=== PATIENT | male | born 1950 | race Caucasian/White ===

== ENCOUNTER 2020-01-30 00:02 | Emergency (ER) | payer OTHER, SELFPAY ==
[2020-01-30 00:14] VITALS: BP 172/87; PULSE 104; RESP 18; TEMP 37; O2SAT 98; BMI 36.9
--- NOTE | 2020-01-30 00:38 | XRR_ITS ---
PROCEDURE INFORMATION: Exam: XR Abdomen, 1 View Exam date and time: 01/30/2020 1:12 AM Age: 69 years old Clinical indication: Constipation; Additional info: Abd pain, constipation TECHNIQUE: Imaging protocol: XR of the abdomen. Views: Frontal supine view of the abdomen. 1 View. COMPARISON: CR XR KUB [id number] 2015-05-14 02:50 FINDINGS: Gastrointestinal tract: Normal. No bowel dilation. Bones/joints: Moderate bilateral hip degenerative joint disease. XR/XR KUB portable [id number] IMPRESSION: No acute abnormality.
--- NOTE | 2020-01-30 00:40 | W.ED.MALEGU ---
HPI - Male Genitourinary General: Chief complaint: Urogenital-Male Stated complaint: Abdominal pain/hemorroid Time Seen by Provider: 01/30/20 00:23 History of Present Illness: HPI Narrative: Patient's have had a couple hard bowel movements now he has a hemorrhoid that flared up and then also has problems urinating and not able to urinate very much at all for her today MD Complaint: dysuria Onset (ago): hour(s) Duration: constant Severity: moderate Relieving factors: urination Exacerbating factors: none Associated symptoms: Reports other (Constipation); Deny nausea or vomiting Review of Systems Const: Denies: fever, chills or body aches Eyes: Denies: change in vision or blurry vision ENMT: Denies: throat pain or nasal congestion Card: Denies: chest pain or shortness of breath on exertion Resp: Denies: shortness of breath, productive cough or non-productive cough GI: Reports: constipation, painful bowel movements (Hemorrhoid) and other; Denies: abdominal pain, nausea or vomiting : Denies: difficulty urinating Musc: Denies: extremity pain Skin/Breast: Denies: rash Neuro: Denies: headache Psych: Denies: anxiety or depression Maxwell/Lymph: Denies: easy bruising PFSH ED PFSH: Social History Smoking and tobacco status: never smoked Physical Exam Const: COMMON NORMALS: no apparent distress, average body habitus and oriented x3 HENMT: COMMON NORMALS: normocephalic HEAD & SCALP: normal to inspection and normocephalic FACE & SINUS: normal facial exam Eye: COMMON NORMALS: conjunctivae normal GENERAL EYE: normal appearance of both eyes CONJUNCTIVA: Yes conjunctivae normal Neck/C-Spine: COMMON NORMALS: no JVD Chest: COMMONS NORMALS: inspection of chest normal Resp: COMMON NORMALS: normal respiratory effort and clear to auscultation bilaterally AUSCULTATION: clear to auscultation bilaterally Cardio: COMMON NORMALS: no JVD, regular rate and regular rhythm RATE: regular rate RHYTHM: regular rhythm GI: COMMON NORMALS: non-tender AUSCULTATION: Yes hypoactive bowel sounds PALPATION: Yes firm PERCUSSION: dullness to percussion RECTAL EXAM: No heme negative stool, Yes prostate abnormal enlarged and other (Firm), Yes heme positive stool, Yes hemorrhoids and Yes prolapse : COMMON NORMALS: Yes no CVA tenderness BLADDER/KIDNEY EXAM: Yes no CVA tenderness Back/Pelvis: COMMON NORMALS: no CVA tenderness Extremity: COMMON NORMALS: normal to inspection and full ROM Neuro: COMMON NORMALS: oriented x3 Course Vital Signs: Vital signs: Vital Signs Temperature 98.6 F 01/30/20 00:14 Pulse Rate 104 H 01/30/20 00:14 Respiratory Rate 18 01/30/20 00:14 Blood Pressure 172/87 01/30/20 00:14 Pulse Oximetry 98 01/30/20 00:14 MDM - Male MDM Narrative: Medical decision making narrative: Patient had good relief with Yun catheter had 1200 cc urine out. Discharge Plan Discharge Patient Disposition: Home, Self-Care Clinical Impression: Acute hemorrhoid, Acute urinary retention Constipation Qualifiers: Constipation type: unspecified constipation type Qualified Code(s): K59.00 - Constipation, unspecified Benign prostatic hyperplasia Qualifiers: Lower urinary tract symptom presence: symptoms present Lower urinary tract symptom detail: urinary retention Qualified Code(s): N40.1 - Benign prostatic hyperplasia with lower urinary tract symptoms Condition: Stable Prescriptions: New terazosin 5 mg capsule 10 mg PO DAILY Qty: 14 RF: 0 Referrals: Maria Eugenia Rosas FNP [Family Provider] - Emile Chamberlain DO [Primary Care Provider] - Discharge Diet: Advance as tolerated and As Directed Discharge Activity: Resume usual activity Patient Instructions: Hemorrhoids, Constipation (ED), Benign Prostatic Hypertrophy (ED), Yun Catheter Placement and Care (ED) Activity Restrictions/Additional Instructions: Follow-up with medical provider as directed. Take medications as prescribed. Return to the ER or your medical provider if condition worsens. Please read and understand discharge instructions. If any questions ask please. Follow-up with your primary care and see about get appointment Dr. Rosa for Friday or Friday. Increase fiber in the diet increase water in your diet need to use laxative and stool softener. Need to use soapsuds enema. Coding Level of Care Code ED Assistant Professor Sculpture for Em Fwd Exam Comprehensive
[2020-01-30] MEDS: terazosin 5 mg Capsule 10 MG PO (01:55)
[2020-01-30 02:00] VITALS: BP 201/102; PULSE 98; RESP 18; O2SAT 93
[2020-01-30 02:22] LABS: Bacteria Urine TRACE; Bilirubin Urine Neg (NEGATIVE); Blood Urine 2+ (Negative); Glucose Urine UA Norm (Normal); Ketones Urine Negative (Negative); Leukocyte Esterase Urine Negative (Negative); Nitrate Urine Negative (Negative); Protein Urine Neg (Negative); RBC Urine 25-40 /hpf (0-2); Sperm Urine 2+; Squamous Epithelial Cell Urine 0-4 (0-5); Urine Appearance Clear (CLEAR); Urine Color Yellow (Yellow); Urobilinogen Urine Norm (Negative); pH Urine 5 (5-7)
[2020-01-30 02:23] LABS: Add Urine Culture? Yes
[2020-01-30 02:48] VITALS: BP 120/53; PULSE 96; RESP 18; O2SAT 98
== END 2020-01-30 02:49 | disposition home or self-care (01) ==
PROVIDERS: Emergency Provider Nurse Practitioner Family; Family Provider Nurse Practitioner; PCP Family Medicine
DX: N40.1 Benign prostatic hyperplasia with lower urinary tract symptoms (principal); R33.8 Other retention of urine; K64.8 Other hemorrhoids; K59.00 Constipation, unspecified
CPT/HCPCS: 12345; 51702; 74018; 81001; 87086; 99283

== ENCOUNTER → 2020-04-24 08:18 | Outpatient (BNVA) | payer OTHER, SELFPAY | PROVIDERS: Family Provider Nurse Practitioner; PCP Family Medicine; Referring Provider Nurse Practitioner; Visit Provider Urology | DX: N40.1 Benign prostatic hyperplasia with lower urinary tract symptoms (principal); R33.9 Retention of urine, unspecified | CPT/HCPCS: 81001 ==

== ENCOUNTER 2021-11-16 07:50 | Outpatient (CLI) | payer OTHER, SELFPAY ==
[2021-11-16 08:10] VITALS: BMI 36.0
--- NOTE | 2021-11-16 08:13 | ECG_ITS ---
[facility] Test Date: 2021-11-16 Pat Name: Fabrice Hood Department: Room: Gender: Male Radiology Transporter: Maria M Coffey : 1950 Requested By: Edgar Perez Order Number: [id number] Walter MD: AFRICA UMAÑA Interpretive Statements NAME OF STUDY: LEXISCAN SESTAMIBI STRESS TEST INDICATION: Chest Pain, NOTE: Please note that this is the electrocardiogram portion of the Lexiscan/Sestamibi stress test. The perfusion scan will be documented separately. DATA: Baseline heart rate was 70 beats per minute. Baseline blood pressure was 144/72 millimeters of mercury. Target heart rate was 144. Maximum heart rate achieved was 92. which was 62 % of the predicted target heart rate. Maximum blood pressure was 162/72 millimeters of mercury. The reason for ending the test was completion of the protocol. The patient did not experience any symptoms. ELECTROCARDIOGRAM: BASELINE: Sinus rhythm. Normal axis. Otherwise, no ST-T changes suggestive of ischemia noted. No arrhythmia noted. EXERCISE: After Lexiscan injection, no ST-T changes suggestive of ischemic noted. No arrhythmia noted. CONCLUSION: Please note due to baseline abnormality of the EKG specificity and sensitivity of the EKG portion of LexiScan MIBI stress test will be low 1. EKG not suggestive of ischemia 2. Lexiscan injection unremarkable. 3. Perfusion scan will be documented separately. Electronically Signed On 11-20-2021 22:02:03 CRADLE PLACER by AFRICA UMAÑA [id number]
--- NOTE | 2021-11-16 08:14 | NMCV_ITS ---
NM juice perf SPECT r/s* [id number] Fabrice Hood Age: 71 Gender: M : 1950 Exam Date: 11/16/2021 08:14 Ordering Phys: Edgar Perez M.D ([email or web address]) Technologist: ELIANE Herndon Exam Location: [facility] Indications: CHEST PAIN STRESS TEST Please see separate stress test report in [facility] for full findings IMAGE PROTOCOL Rest/Stress 1 Lexiscan Day Radiopharmaceutical Dose (mCi) Administration Site Administered by Rest: Tc-99m 10.9 IV ELIANE Hansen Sestamibi Stress:Tc-99m 32.6 IV ELIANE Hansen Sestamibi Rest: 16-Nov-2021 60 Discovery 630 Stress: 16-Nov-2021 30 Discovery 630 0.4mg Lexiscan. Images obtained in supine and prone position. SPECT RESULTS Technical Quality: Excellent Raw Data Analysis: Normal Image Corrections: No attenuation or motion correction applied Summed Stress Score: 4 Summed Rest Score: 4 Summed Difference Score: 3 PERFUSION FINDINGS Medium-sized area fixed perfusion defect noted in basal to mid inferior and inferior lateral wall suggestive of old myocardial infarction versus scarring. FUNCTIONAL RESULTS (calculated via Gated SPECT) Stress Image LV EF (%): 79 Stress EDV (mL):102 TID: 1.02 Stress ESV (mL):21 Rest Image LV EF (%): 79 FUNCTIONAL FINDINGS: There is normal left ventricular systolic function. IMPRESSIONS Medium-sized area of old myocardial infarction versus scarring due to fixed perfusion defect noted in basal to mid inferior and for lateral wall however in the absence of wall motion abnormality could be an artifact. There is no ischemia noted. EKG segment will be documented separately. Charo Cano MD (Electronically Signed) Final Date: 16 November 2021 18:38 S
[2021-11-16 09:58] VITALS: BP 126/59; PULSE 83
[2021-11-16] MEDS: regadenoson 0.4 Mg/5 ml Syringe IVP (10:00)
== END 2021-11-16 07:51 | disposition home or self-care (01) ==
LOC: RAD 07:52 → CDL 08:02
PROVIDERS: PCP Family Medicine; Visit Provider Internal Medicine
DX: R07.9 Chest pain, unspecified (principal); R06.02 Shortness of breath
CPT/HCPCS: 78452; 93017; A9500; J2785

== ENCOUNTER 2021-12-31 15:27 | Outpatient (CLI) | payer OTHER, MEDICARE, SELFPAY ==
--- NOTE | 2021-12-31 15:45 | USCV_ITS ---
Fabrice Hood Age: 71 Gender: M : 1950 Exam Date: 12/31/2021 15:43 Ordering Phys: Edgar Perez M.D ([email or web address]) Technologist: DAMARI Exam Location: [facility] [place] Indication: Shortness of breath BP: 132 / 58 HR: 59 Rhythm: Sinus Technical Quality: Adequate MEASUREMENTS (Male / Female) Normal Values 2D ECHO LV Diastolic Diameter PLAX 4.9 cm 4.2 - 5.9 / 3.9 - 5.3 cm LV Systolic Diameter PLAX 3.1 cm IVS Diastolic Thickness 1.5 cm 0.6 - 1.0 / 0.6 - 0.9 cm IVS Systolic Thickness 1.6 cm LVPW Diastolic Thickness 1.1 cm 0.6 - 1.0 / 0.6 - 0.9 cm LVPW Systolic Thickness 1.7 cm RV Chamber Size 3.2 cm LVOT Diameter 2.0 cm LV Ejection Fraction 2D Teich 66.9 % LV Ejection Fraction MOD 2C 62.6 % LV Ejection Fraction 2C AL 63.0 % LA Diameter 3.8 cm LA Width 3.3 cm LA Height 5.1 cm RA Width 3.8 cm RA Height 4.7 cm Aorta at Sinotubular Diameter 2.1 cm M-MODE Aortic Annulus Diameter 2.8 cm LA Ao Ratio MM 1.4 MV E Point Septal Separation 0.4 cm DOPPLER AV Peak Velocity 146.0 cm/s LVOT Peak Velocity 75.0 cm/s AV Area Cont Eq vti 2.2 cm squared AV Area Cont Eq pk 1.6 cm squared MV Area PHT 2.7 cm squared Mitral E to A Ratio 0.8 MV E' Velocity 36.5 cm/s Mitral E to MV E' Ratio 7.6 Mitral E to LV E' Lateral Ratio 7.8 Mitral E to LV E' Septal Ratio 7.5 TR Peak Velocity 360.7 cm/s TR Peak Gradient 52.0 mmHg TV Peak E Velocity 50.0 cm/s PV Peak Velocity 161.0 cm/s RV Acceleration Time 0.1 s RV Ejection Time 0.3 s RV AcT/ET 0.2 FINDINGS Left Ventricle Normal left ventricular size. LV systolic function is normal with EF of 55-60%. No regional wall motion abnormalities. Grade 1 diastolic dysfunction Right Ventricle The right ventricle is normal in size and function. Right Atrium The right atrium is normal in size. Left Atrium The left atrium is normal in size. Mitral Valve Structurally normal mitral valve without significant stenosis or prolapse. There is trace mitral regurgitation. Aortic Valve Structurally normal aortic valve without significant sclerosis or stenosis. There is no aortic regurgitation. Tricuspid Valve Structurally normal tricuspid valve without significant stenosis. Mild tricuspid regurgitation. Insufficient TR jet to calculate RVSP Pulmonic Valve Structurally normal pulmonic valve without significant stenosis. There is no pulmonic regurgitation. Pericardium Normal pericardium without effusion. Aorta Normal ascending aorta dimension. CONCLUSIONS LV systolic function is normal with EF of 55-60% Grade 1 diastolic dysfunction Trace mitral regurgitation Mild tricuspid regurgitation No comparison studies are available Edgar Perez MD (Electronically Signed) Final Date: 05 January 2022 17:29 S
== END 2021-12-31 15:28 | disposition home or self-care (01) ==
LOC: RAD 15:28
PROVIDERS: PCP Family Medicine; Visit Provider Internal Medicine
DX: R06.02 Shortness of breath (principal); R07.9 Chest pain, unspecified; I08.1 Rheumatic disorders of both mitral and tricuspid valves
CPT/HCPCS: 93306

== ENCOUNTER 2022-09-02 13:32 | Emergency (ER) | payer OTHER, SELFPAY ==
[2022-09-02 14:09] VITALS: BP 175/73; PULSE 99; RESP 14; TEMP 36.8; O2SAT 96; BMI 36.4
--- NOTE | 2022-09-02 14:47 | W.ED.ABDPA2 ---
HPI - Abdominal Pain General: Chief Complaint: Abdominal Pain Stated Complaint: cant use bathroom Time Seen by Provider: 09/02/22 14:18 Source: patient Mode of arrival: ambulatory Limitations: no limitations History of Present Illness: This patient presents to the emergency department because of abdominal pressure and discomfort and inability to pass urine. He states that he has had increasing lower abdominal pressure with inability to pass much in the way of urine today. He states when he got up today he had the urge to have a bowel movement but he states he only had a very small bowel movement and then he passed a small amount of urine and since then he is has only been able to pass a small amount of urine. He states he is feels increasingly distended and uncomfortable. He denies any fevers or chills. He has had 1 similar occurrence many years ago but did not require any additional urologic evaluation or work-up. He does take Flomax. He states that he drank usual amount of water last night and this morning. He has had no obvious blood in his urine, fevers, chills, upper abdominal pain etc. He has had no abdominal surgeries. No history of cardiovascular disease. Non-smoker. MD elicited complaint: abdominal pain Associated Symptoms: Denies chills, diarrhea, fever(s), nausea and vomiting Review of Systems Const: Denies: fever(s) or chills Eyes: Denies: change in vision ENMT: Denies: throat pain, odynophagia, nasal discharge or nasal congestion Card: Denies: chest pain, palpitations or irregular heart rhythm Resp: Denies: dyspnea, productive cough or non-productive cough GI: Denies: nausea, vomiting or diarrhea : Reports: difficulty urinating, difficulty starting urination and oliguria Musc: Denies: neck pain, back pain, extremity pain or extremity swelling Skin/Breast: Denies: rash Neuro: Denies: headache(s), numbness in extremities or weakness in extremities Endo: Denies: polyuria or polydipsia PFS ED PFSH: Medical History (Updated 09/02/22 @ 16:30 by Teo Lambert DO) BPH NOS w ur obs/LUTS Hemorrhoid Hx of agent [place] exposure Urinary retention Family History Grandmother Diabetes Other CAD (coronary artery disease) Social History Smoking and tobacco status: former smoker Quit status (tobacco): has quit using tobacco Year quit tobacco: 1977 Alcohol intake: never Adopted: No Caregiver/support person: No Lives independently: No Household members: spouse Marital status: Current occupational status: employed History of recent travel: No Physical Exam Narrative: EXAM NARRATIVE: Patient makes good eye contact but appears to be slightly uncomfortable but is able to interact appropriately. Const: COMMON NORMALS: average body habitus and patient oriented x3 GENERAL APPEARANCE: cooperative and well kempt HENMT: COMMON NORMALS: normocephalic, atraumatic, Normal nasal mucous membranes and turbinates present and moist oral mucous membranes HEAD & SCALP: normocephalic and atraumatic NOSE: Normal nasal mucous membranes and turbinates present Eye: COMMON NORMALS: Equal, round and reactive pupils present, EOMs intact bilaterally and conjunctivae normal CONJUNCTIVA: Yes conjunctivae normal PUPIL: Yes Equal, round and reactive pupils present Neck/C-Spine: COMMON NORMALS: full ROM and no lymphadenopathy Chest: COMMONS NORMALS: normal inspection of the chest Resp: COMMON NORMALS: normal respiratory effort, No use of accessory muscles and clear to auscultation bilaterally AUSCULTATION: clear to auscultation bilaterally Cardio: COMMON NORMALS: regular rate, regular rhythm, No murmurs present (Cardio) and Peripheral pulses 2+ throughout RATE: regular rate RHYTHM: regular rhythm PERIPHERAL PULSES: Peripheral pulses 2+ throughout GI: COMMON NORMALS: Soft to palpation PALPATION: Yes Soft to palpation PERCUSSION: tympanic to percussion (Suprapubic and lower abdomen) OTHER: Patient displays mild central obesity. Soft and nontender. Does have some tympanic findings to percussion in the lower abdomen and suprapubic region. No rebound or guarding. No masses noted. : COMMON NORMALS: Yes no CVA tenderness BLADDER/KIDNEY EXAM: Yes no CVA tenderness Back/Pelvis: COMMON NORMALS: no CVA tenderness, thoracic and lumbar spine normal to inspection, no thoracic nor lumbar tenderness, thoraco-lumbar ROM normal and straight leg raise negative bilaterally Extremity: COMMON NORMALS: normal to inspection, full ROM, capillary refill normal and no pedal edema Neuro: COMMON NORMALS: patient oriented x3, moves all extremities, no focal motor deficits and no sensory deficits noted Psych: COMMON NORMALS: mental status grossly normal APPEARANCE: Yes well kempt Skin: COMMON NORMALS: no rashes or lesions noted and turgor normal GENERAL SKIN EXAM: no rashes or lesions noted and turgor normal Course Reevaluation(s): Reevaluation #1: Portable bedside ultrasound using the phased array probe was utilized to evaluate the patient's abdomen. It was notable in the lower abdomen that there was significant distention of the urinary bladder with estimated anywhere from 800 1200 mL of urine present. A AP and sagittal view of the aorta was also completed in a limited fashion. It was viewed from the subxiphoid region to the bifurcation. No abnormal or unusual enlargements in either plane were noted. No evidence of false lumen. Time: 14:54 Reevaluation #2: Patient had 1400 mL of clear urine output. He feels much better. I discussed the usual recommendations as we leave the Yun in for several days to allow his bladder to decompress. He knows there is a risk of having to have the blood catheter reinserted later tonight or tomorrow but wants to give it a try without the Yun. Certainly not too unreasonable but again I reassured reaffirmed that there is a risk having retention again in the next 24 hours. Also advised him to start on MiraLAX to keep his stool soft as he been having some hard stools and that may be a factor in his acute retention. Time: 16:29 Vital Signs: Vital signs: Vital Signs Temperature 98.3 F 09/02/22 14:09 Pulse Rate 99 09/02/22 14:09 Respiratory Rate 14 09/02/22 14:09 Blood Pressure 175/73 09/02/22 14:09 Pulse Oximetry 96 09/02/22 14:09 Oxygen Delivery Me thod 09/02/22 14:09 MDM - Abdominal Pain Medical Decision Making Patient with a known history of mild BPH on Flomax who had acute urinary retention. This was easily rectified with Yun producing over 1000 mL of urine without any evidence of infection. The patient remained stable and desired to be discharged without a Yun acknowledging the risks of having it replaced. He is stable at this time voiced understanding and is aware of return precautions. Lab Data I reviewed the patient's lab results. Labs/Radiology: Laboratory Results Urine Color Yellow (Yellow) 09/02/22 15:10 Urine Appearance Clear (CLEAR) 09/02/22 15:10 Urine pH 5 (5-7) 09/02/22 15:10 Ur Specific [place] 1.020 (1.005-1.030) 09/02/22 15:10 Urine Protein Neg (Negative) 09/02/22 15:10 Urine Glucose (UA) Norm (Normal) 09/02/22 15:10 Urine Ketones Negative (Negative) 09/02/22 15:10 Urine Blood Neg (Negative) 09/02/22 15:10 Urine Nitrate Negative (Negative) 09/02/22 15:10 Urine Bilirubin Neg (Negative) 09/02/22 15:10 Urine Urobilinogen Norm mg/dL (Negative) 09/02/22 15:10 Ur Leukocyte Esterase Negative (Negative) 09/02/22 15:10 Discharge Plan Discharge Patient Disposition: Home Clinical Impression: Acute urinary retention Condition: Stable Prescriptions: No Action tamsulosin 0.4 mg capsule 0.4 mg PO DAILY lisinopril 20 mg tablet 20 mg PO DAILY lovastatin 40 mg tablet 40 mg PO DAILY All Day Allergy (cetirizine) 10 mg capsule 10 mg PO DAILY PRN (Reason: Allergic Reaction) ketoconazole 2 % shampoo 1 applic topical .2-3 times weeky Qty: 120 6RF Rx Instructions: Lather into scalp 2-3 times weekly. Allow to sit on scalp for 5 minutes before rinsing Discharge Orders: Discharge ED (Routine); Ordered 09/02/22 Ordered By: Teo Lambert Referrals: Maria Eugenia Rosas FNP [Primary Care Provider] - Discharge Diet: Usual diet Discharge Activity: Increase activity as tolerated Patient Instructions: Opioid Safety, Pain Management Activity Restrictions/Additional Instructions: Continue usual fluid intake. Continue all your usual medications. Purchase MiraLAX [id number] and begin taking 1 package daily to keep stools soft. Should you develop recurrent urinary retention, abdominal pain, fever or any other concerns return to this emergency department immediately. Follow-up with urology per primary care referral. Coding Level of Care Code ED Color Consultant for Em Fwd Exam Comprehensive
[2022-09-02 15:18] LABS: Add Urine Microscopic? NO; Charge for UA Resulting for Rev
[2022-09-02 15:19] LABS: Bilirubin Urine Neg (Negative); Blood Urine Neg (Negative); Glucose Urine UA Norm (Normal); Ketones Urine Negative (Negative); Leukocyte Esterase Urine Negative (Negative); Nitrate Urine Negative (Negative); Protein Urine Neg (Negative); Urine Appearance Clear (CLEAR); Urine Color Yellow (Yellow); Urobilinogen Urine Norm (Negative); pH Urine 5 (5-7)
--- NOTE | 2022-09-02 16:54 | PC.NURSE ---
Yun cath dc'd without difficulty
[2022-09-02 17:20] VITALS: BP 152/74; PULSE 91; RESP 18; TEMP 37.1; O2SAT 96
== END 2022-09-02 17:24 | disposition home or self-care (01) ==
PROVIDERS: Emergency Provider Emergency Medicine; PCP Nurse Practitioner
DX: R33.9 Retention of urine, unspecified (principal); Z87.891 Personal history of nicotine dependence; N40.0 Benign prostatic hyperplasia without lower urinary tract symptoms
CPT/HCPCS: 51702; 81003; 99283

== ENCOUNTER → 2022-12-27 07:17 | Outpatient (BNVA) | payer OTHER, SELFPAY | PROVIDERS: PCP Nurse Practitioner; Visit Provider Urology | DX: R33.9 Retention of urine, unspecified (principal); N52.9 Male erectile dysfunction, unspecified | CPT/HCPCS: 51741; 51798; 99213 ==

== ENCOUNTER 2023-02-24 09:10 | Outpatient (CLI) | payer OTHER, SELFPAY ==
--- NOTE | 2023-02-24 09:21 | MR_ITS ---
WS: [id number] MRI CERVICAL SPINE NONCONTRAST HISTORY: NECK PAIN,RADICULOPATHY/DDD COMPARISON: None available. Technique: Multiplanar, multisequence noncontrast imaging of the cervical spine. Mild forward flexion of the cervical spine. There is some very slight increased T2 signal in the cervical cord at the C4-5 level extending over l ength of 4 mm. This is an area of stenosis consistent with myelomalacia. Craniocervical junction, C1 and C2 relationship, odontoid process and soft tissues are normal. C2-C3: Normal. C3-C4: Diffuse osteophytic ridging with facet joint arthritis. Mild bilateral foraminal stenosis. No significant central stenosis although there is mild osteophyte encroachment upon the ventral thecal s ac. C4-C5: Mild osteophytic ridging. There is diffuse annular disc bulging and marked facet joint arthrit is. Combination of factors causing severe central and bilateral foraminal stenosis. This is also the level of myelomalacia. C5-C6: Small central disc protrusion versus osteophyte. Mild central stenosis. No high-grade stenosis . C6-C7: Diffuse osteophytic ridging and annular disc bulge. Central disc protrusion. Mild central with moderate bilateral foraminal stenosis predominantly due to osteophytes. Slightly greater foraminal n arrowing on the RIGHT. C7-T1: Small central disc protrusion and mild facet arthritis. Paraspinal soft tissue are normal. MR/MR cervical spin wo con* [id number] IMPRESSION: 1. Severe central and bilateral foraminal stenosis at C4-5 due to osteophytic ridging, disc and facet disease. 2. Focal myelomalacia in the cervical cord at the C4-5 level at the site of th e high-grade central stenosis. 3. Mild central with moderate bilateral foraminal stenosis, RIGHT greater than LEFT at C6-7. Additional central disc protrusion. 4. Mild central stenosis at C5-6. 5. Mild bilateral foraminal stenosis at C3-4.
== END 2023-02-24 09:11 | disposition home or self-care (01) ==
LOC: RAD 09:15
PROVIDERS: PCP Nurse Practitioner; Visit Provider Nurse Practitioner
DX: M54.12 Radiculopathy, cervical region (principal); M50.30 Other cervical disc degeneration, unspecified cervical region; M48.02 Spinal stenosis, cervical region; G95.89 Other specified diseases of spinal cord; M50.223 Other cervical disc displacement at C6-C7 level
CPT/HCPCS: 72141

== ENCOUNTER → 2023-03-27 15:34 | Outpatient (BNVA) | payer OTHER, SELFPAY | PROVIDERS: PCP Nurse Practitioner; Visit Provider Dermatology | DX: C44.519 Basal cell carcinoma of skin of other part of trunk (principal); L82.1 Other seborrheic keratosis; L57.0 Actinic keratosis; Z85.828 Personal history of other malignant neoplasm of skin; Z87.891 Personal history of nicotine dependence | CPT/HCPCS: 11102; 17000; 17003; 17110; 99213 ==

== ENCOUNTER → 2023-04-09 08:13 | Outpatient (BNVA) | payer OTHER, SELFPAY | PROVIDERS: PCP Nurse Practitioner; Visit Provider Dermatology | DX: C44.519 Basal cell carcinoma of skin of other part of trunk (principal) | CPT/HCPCS: 11602; 12032 ==

== ENCOUNTER → 2023-05-23 09:28 | Outpatient (BNVA) | payer OTHER, SELFPAY | PROVIDERS: PCP Nurse Practitioner; Visit Provider Nurse Practitioner Family | DX: D47.Z9 Other specified neoplasms of uncertain behavior of lymphoid, hematopoietic and related tissue (principal); L82.1 Other seborrheic keratosis; L57.0 Actinic keratosis; L57.8 Other skin changes due to chronic exposure to nonionizing radiation; Z85.828 Personal history of other malignant neoplasm of skin; Z87.891 Personal history of nicotine dependence; L81.4 Other melanin hyperpigmentation; D22.5 Melanocytic nevi of trunk; L85.3 Xerosis cutis | CPT/HCPCS: 11102; 11103; 17004; 99213 ==

== ENCOUNTER → 2023-06-09 15:40 | Outpatient (BNVA) | payer OTHER, SELFPAY | PROVIDERS: PCP Nurse Practitioner; Visit Provider Dermatology | DX: C83.30 Diffuse large B-cell lymphoma, unspecified site (principal) | CPT/HCPCS: 99214 ==

== ENCOUNTER 2023-06-13 09:21 | Outpatient (CLI) | payer OTHER, SELFPAY ==
[2023-06-13 10:27] LABS: Hematocrit 42.1 % (42.0-52.0); Hemoglobin 13.7 g/dL (11.7-16.6); Mean Corpuscular HGB Conc 32.5 g/dL (30.0-36.0); Mean Corpuscular Hemoglobin 29.4 pg (28.0-34.0); Mean Corpuscular Volume 90.3 fl (80-94); Mean Platelet Volume 9.8 fL (7.4-10.4); Platelet Count 289 10^3/cmm (130-400); Red Blood Count 4.66 10^6/uL (4.1-5.3); Red Cell Distribution Width 13.6 % (12.1-15.1); White Blood Count 9.9 10^3/uL (4.0-10.0)
[2023-06-13 10:58] LABS: Alanine Aminotransferase 13 U/L (0-41); Albumin Level 4.4 g/dL (3.5-5.2); Alkaline Phosphatase 76 U/L (40-130); Anion Gap 15.8 (5-19); Aspartate Amino Transferase 15 U/L (0-40); Blood Urea Nitrogen 18 mg/dL (8-23); Carbon Dioxide 27 mmol/L (22-29); Chloride 103 mmol/L (98-107); Globulin 2.5 g/dL (1.3-4.6); Glucose 110 mg/dL (65-115); Lactate Dehydrogenase 135 U/L (135-225); Osmolality Calculated 295 mOsm/kg (285-295); Potassium 4.8 mmol/L (3.5-5.1); Sodium 141 mmol/L (136-145); Total Bilirubin 0.4 mg/dL (0.15-1.2); Total Protein 6.9 g/dL (6.6-8.7)
[2023-06-13 11:31] LABS: Absolute Eosinophils 0.2 10^3/cmm (0.0-0.7); Band Neutrophils Absolute 0.1 10^3/cmm (0.0-1.2); Basophils Absolute 0.2 10^3/cmm (0.0-0.2); Eosinophils 3 %; Lymphocytes 17 %; Lymphocytes Absolute 1.7 10^3/cmm (1.2-3.4); Monocytes Absolute 0.6 10^3/cmm (0.1-0.6); Segmented Neutrophils 71 %; Total Cells Counted 100 (0-100)
[2023-06-13 11:32] LABS: Absolute Neutrophil 7.1 10^3/cmm (1.4-6.5); Platelet Estimate Normal (Normal)
[2023-06-15 23:29] LABS: CD57 +/CD3 - Absolute 112 cells/uL (20-258); CD57 +/CD3 - of % Lymphs 6 % (1-10); CD57 +/CD3 - of % WBC 1 % (1-4); CD57 +/CD3-/CD8 -of $% Lymphs 3 % (1-5); CD57 +/CD3-/CD8 -of %WBC 1 % (1-3); CD57 +/CD3-/CD8 -of Absolute 56 cells/uL (20-114); CD57 +/CD8 -of %WBC 1 % (1-4); CD57 +/CD8 -of Lymphs 7 % (1-15); CD57 +/CD8 Absolute 131 cells/uL (20-248)
== END 2023-06-13 09:22 | disposition home or self-care (01) ==
PROVIDERS: PCP Nurse Practitioner; Visit Provider Dermatology
DX: C84.A1 Cutaneous T-cell lymphoma, unspecified lymph nodes of head, face, and neck (principal)
CPT/HCPCS: 80053; 83615; 85007; 85027; 86356; 86359

== ENCOUNTER 2023-06-30 07:51 | Oncology outpatient (recurring) (ONCR) | payer OTHER, SELFPAY | END 2023-07-03 23:59 | disposition home or self-care (01) | LOC: ONCMED 07:52 | PROVIDERS: PCP Nurse Practitioner; Visit Provider Internal Medicine Medical Oncology | DX: C84.A8 Cutaneous T-cell lymphoma, unspecified, lymph nodes of multiple sites (principal) | CPT/HCPCS: 99203 ==

== ENCOUNTER → 2023-07-21 12:52 | Outpatient (BNVA) | payer OTHER, SELFPAY | PROVIDERS: PCP Nurse Practitioner; Visit Provider Dermatology | DX: C84.A1 Cutaneous T-cell lymphoma, unspecified lymph nodes of head, face, and neck (principal); R59.0 Localized enlarged lymph nodes; L81.4 Other melanin hyperpigmentation; L82.1 Other seborrheic keratosis; L57.8 Other skin changes due to chronic exposure to nonionizing radiation; Z85.828 Personal history of other malignant neoplasm of skin; L82.0 Inflamed seborrheic keratosis | CPT/HCPCS: 17110; 99214 ==

== ENCOUNTER 2023-07-26 05:24 | Outpatient (CLI) | payer OTHER, SELFPAY ==
--- NOTE | 2023-07-26 07:30 | PETR_ITS ---
PROCEDURE INFORMATION: Exam: PET/CT Skull Base to Mid-thigh Exam date and time: 07/26/2023 8:31 AM Age: 73 years old Clinical indication: Condition or disease; Primary cancer: T-cell lymphoma; Initial oncological staging assessment; Additional info: Staging for t-cell lymphoma LABS AND CLINICAL REPORTS: Glucose: 109 mg/dl Treatment strategy for malignancy (PET staging): Initial Staging (PI) TECHNIQUE: Imaging protocol: Following at least four-hour fasting and following the injection of radiopharmaceutical, low dose CT images were obtained. Then, PET images were obtained. Attenuation corrected images were constructed using the CT scan. Fused images of PET and CT were reviewed. The standardized uptake values (SUV) reported below are maximum values within a region of interest, expressed in gm/ml. Exam includes orbital meatal line to mid-thigh. Radiopharmaceutical: 12.64 mCi F-18 FDG (Fluorodeoxyglucose), IV. Time of imaging post radiopharmaceutical administration: 1 hour Injection site: Left antecubital COMPARISON: PT PET Scan 03/21/2018 8:19 AM FINDINGS: Limitations: Motion artifact. Brain: Visualized brain has normal physiologic uptake. Pharynx: No abnormal uptake. Larynx: No abnormal uptake. Lungs, pleura and trachea: No abnormal uptake. A right lower lobe calcified granuloma is present. Heart: Normal physiologic uptake. Mediastinal space: No abnormal uptake. Liver: No abnormal uptake. There is a similar ovoid low-density non radiotracer avid structure in the right lobe of the liver measuring 1.5 x 0.7 cm on series 3, image 80 compatible with the benign cyst or hemangioma. Gallbladder and bile ducts: No abnormal uptake. A stone in the gallbladder is present. Pancreas: No abnormal uptake. Spleen: No abnormal uptake. Calcified granulomas are noted. Adrenal glands: No abnormal uptake. Kidneys and ureters: Normal physiologic uptake. A similar non radiotracer avid exophytic fluid density structure arises from the inferior pole of the left kidney measuring 1 cm on series 3, image 103. Unremarkable right kidney. Stomach and bowel: No abnormal uptake. Reproductive: Moderate left and small right scrotal hydroceles are noted. No abnormal uptake. Vasculature: No abnormal uptake. There are diffuse atherosclerotic changes. Lymph nodes: No abnormal uptake. No lymphadenopathy in the head, neck, chest, abdomen, pelvis, and extremities. There are benign-appearing calcified lymph nodes in the subcarinal space. Bones/joints: No abnormal uptake in the visualized axial and appendicular skeleton. [id number] diffuse degenerative spondylosis within the spine is noted. Soft tissues: No abnormal uptake in the visualized head, neck, chest, abdomen, pelvis, and extremities. METRICS: Mediastinal blood pool: SUV max 3.3 Liver uptake: SUV max 4.4, SUV mean 3.2 [facility] [id number] IMPRESSION: 1. No evidence of radiotracer avid malignancy. 2. Old granulomatous changes. 3. Cholelithiasis. 4. Similar non radiotracer avid low-density lesion in the inferior pole of the left kidney. Assessment of renal lesions can be limited by PET-CT however the appearance is most consistent with a benign simple cyst. 5. A low-density lesion in the liver compatible with a benign cyst or hemangioma. 6. Additional nonurgent findings as detailed above.
== END 2023-07-26 05:25 | disposition home or self-care (01) ==
LOC: RAD 07-28 05:24
PROVIDERS: PCP Nurse Practitioner; Visit Provider Internal Medicine Medical Oncology
DX: C84.A1 Cutaneous T-cell lymphoma, unspecified lymph nodes of head, face, and neck (principal); K80.20 Calculus of gallbladder without cholecystitis without obstruction; N28.9 Disorder of kidney and ureter, unspecified; K76.9 Liver disease, unspecified
CPT/HCPCS: 78815; A9552

== ENCOUNTER 2023-08-04 13:04 | Oncology outpatient (recurring) (ONCR) | payer OTHER, SELFPAY | END 2023-09-02 23:59 | disposition home or self-care (01) | LOC: ONCMED 13:04 | PROVIDERS: PCP Nurse Practitioner; Visit Provider Internal Medicine Medical Oncology | DX: C84.A0 Cutaneous T-cell lymphoma, unspecified, unspecified site (principal) | CPT/HCPCS: 99215 ==

== ENCOUNTER → 2023-08-26 14:15 | Outpatient (BNVA) | payer OTHER, SELFPAY | PROVIDERS: PCP Nurse Practitioner; Visit Provider Dermatology | DX: D48.5 Neoplasm of uncertain behavior of skin (principal); C84.A1 Cutaneous T-cell lymphoma, unspecified lymph nodes of head, face, and neck; L81.4 Other melanin hyperpigmentation; L82.1 Other seborrheic keratosis; Z85.828 Personal history of other malignant neoplasm of skin; L57.8 Other skin changes due to chronic exposure to nonionizing radiation | CPT/HCPCS: 11102; 99214 ==

== ENCOUNTER → 2023-12-25 10:10 | Outpatient (BNVA) | payer OTHER, SELFPAY | PROVIDERS: PCP Nurse Practitioner; Visit Provider Dermatology | DX: C84.A1 Cutaneous T-cell lymphoma, unspecified lymph nodes of head, face, and neck (principal); L82.0 Inflamed seborrheic keratosis; L82.1 Other seborrheic keratosis; D22.5 Melanocytic nevi of trunk; D22.39 Melanocytic nevi of other parts of face; L81.4 Other melanin hyperpigmentation | CPT/HCPCS: 17110; 99214 ==

== ENCOUNTER → 2024-02-17 12:54 | Outpatient (BNVA) | payer OTHER, SELFPAY | PROVIDERS: PCP Nurse Practitioner; Visit Provider Dermatology | DX: C84.A1 Cutaneous T-cell lymphoma, unspecified lymph nodes of head, face, and neck (principal); D48.5 Neoplasm of uncertain behavior of skin; L57.0 Actinic keratosis; Z85.828 Personal history of other malignant neoplasm of skin; L82.1 Other seborrheic keratosis; D18.01 Hemangioma of skin and subcutaneous tissue; L81.4 Other melanin hyperpigmentation; L57.8 Other skin changes due to chronic exposure to nonionizing radiation | CPT/HCPCS: 11102; 17000; 99214 ==

== ENCOUNTER → 2024-03-15 09:12 | Outpatient (BNVA) | payer OTHER, SELFPAY | PROVIDERS: PCP Nurse Practitioner; Visit Provider Dermatology | DX: C84.00 Mycosis fungoides, unspecified site (principal); C44.49 Other specified malignant neoplasm of skin of scalp and neck; L82.0 Inflamed seborrheic keratosis | CPT/HCPCS: 12042; 17110; 17311; 99214 ==

== ENCOUNTER → 2024-03-22 15:27 | Outpatient (BNVA) | payer OTHER, SELFPAY | PROVIDERS: PCP Nurse Practitioner; Visit Provider Dermatology | DX: C84.00 Mycosis fungoides, unspecified site (principal); Z48.02 Encounter for removal of sutures | CPT/HCPCS: 99213 ==

== ENCOUNTER → 2024-05-12 07:50 | Outpatient (CLI) | payer OTHER, SELFPAY ==
--- NOTE | 2024-05-12 07:57 | MR_ITS ---
WS: [id number] MRI CERVICAL SPINE NONCONTRAST TECHNIQUE: Sagittal T1, T2 and STIR imaging. Axial T2, gradient, and fiesta imaging. CLINICAL INFORMATION: INCREASED CERVICAL PAIN W/RIGHT HAND ATROPHY COMPARISON: MRI 02/24/2023 FINDINGS: Straightening of the normal cervical lordosis. Moderate spondylitic changes. Disc bulging worse at C3 -C4 C4-C5 and C6-C7. C2-C3: Normal C3-C4: Disc osteophyte complex with endplate ridging. Mild LEFT foraminal narrowing. Mild facet arthr opathy. C4-C5: Disc osteophyte complex with moderate central canal stenosis and indentation of the cervical c ord similar to previous. Severe bilateral bony foraminal narrowing LEFT greater than RIGHT. Mild to m oderate facet arthropathy. C5-C6: Mild LEFT bony foraminal narrowing. Mild facet arthropathy. C6-C7: Disc osteophyte complex with endplate ridging. Moderate to severe bilateral bony foraminal rina rowing. Mild facet arthropathy. Spinal canal is patent. C7-T1: Mild LEFT and no significant RIGHT foraminal narrowing. Mild facet arthropathy. Visualized brain stem structures: Normal. Prevertebral soft tissues: Normal. MR/MR cervical spin wo con* [id number] IMPRESSION: 1. Straightening of the normal cervical doses. Moderate spondylitic changes. 2. Moderate central canal stenosis C4-5 with indentation on the cervical cord. This appears stable compared to previous. 3. Severe bilateral bony foraminal narrowing C4-5 unchanged. 4. Moderate to severe bilateral bony foraminal narrowing C6-7 LEFT greater daren n RIGHT.
== END | disposition home or self-care (01) ==
LOC: RAD 07:49
PROVIDERS: PCP Nurse Practitioner; Visit Provider Nurse Practitioner
DX: M47.812 Spondylosis without myelopathy or radiculopathy, cervical region (principal); M48.02 Spinal stenosis, cervical region; M99.61 Osseous and subluxation stenosis of intervertebral foramina of cervical region; M25.78 Osteophyte, vertebrae
CPT/HCPCS: 72141

== ENCOUNTER 2024-06-30 16:27 | Outpatient (CLI) | payer OTHER, SELFPAY | END 2024-06-30 16:28 | disposition home or self-care (01) | LOC: LAB 16:28 | PROVIDERS: PCP Nurse Practitioner; Visit Provider Nurse Practitioner | DX: G56.01 Carpal tunnel syndrome, right upper limb (principal) | CPT/HCPCS: 36415; 80053; 85025 ==

== ENCOUNTER 2024-07-01 08:04 | Outpatient (CLI) | payer OTHER, SELFPAY ==
[2024-07-01 08:11] LABS: Charge for UA Resulting for Rev
[2024-07-01 08:15] LABS: Bilirubin Urine Negative (Negative); Blood Urine Negative (Negative); Glucose Urine UA Negative (Normal); Ketones Urine Negative (Negative); Leukocyte Esterase Urine Negative (Negative); Nitrate Urine Negative (Negative); Protein Urine Negative (Negative); Specific Gravity, Urine 1.018 (1.005-1.030); Urine Appearance Clear (CLEAR); Urobilinogen Urine 0.2 mg/dL (Negative); pH Urine 5.5 (5-7)
[2024-07-01 08:18] LABS: Bacteria Urine None Seen /hpf; RBC Urine 0-2 /hpf (0-2); Squamous Epithelial Cell Urine 0-5 /hpf (0-5); WBC Urine 0-5 /hpf (0-5)
[2024-07-01 08:24] LABS: Urine Color Yellow (Yellow)
== END 2024-07-01 08:05 | disposition home or self-care (01) ==
LOC: LAB 08:04
PROVIDERS: PCP Nurse Practitioner; Visit Provider Nurse Practitioner
DX: G56.00 Carpal tunnel syndrome, unspecified upper limb (principal)
CPT/HCPCS: 81003; 81015

== ENCOUNTER 2024-07-20 05:55 | Day surgery (SDC) | payer OTHER, SELFPAY ==
[2024-07-20] VITALS (9 sets, daily range): BP systolic 105–139; BP diastolic 57–71; PULSE 53–76; RESP 16; TEMP 36.1–36.3; O2SAT 94–99
[2024-07-20] MEDS: sodium chloride 0.9% 1,000 ML 30 ML IV (06:20)
[2024-07-20] MEDS: acetaminophen 1,000 MG/100 ML PIGGYBACK 400 MG IV (06:22)
[2024-07-20] MEDS: CELEcoxib 200 mg Capsule 400 MG PO (06:27)
[2024-07-20] MEDS: gabapentin 300 mg Capsule PO (06:27)
--- NOTE | 2024-07-20 06:57 | P.HPUD_ITS ---
Surgery/Procedure H&P Update DATE OF PROCEDURE: July 20, 2024 DATE H&P PERFORMED: 06/30/24 H&P UPDATE INFORMATION: I have reviewed H&P completed within last 30 days, I have examined patient prior to procedure, No changes to prior documentation and H&P is in [facility] EMR on date indicated PLANNED PROCEDURE: Operation Date: 07/20/24 07:00 Proposed Procedures p Carpal Tunnel Release(Right) - Carla Turner MD Related Problem List Diagnoses (1) Carpal tunnel syndrome, right:
--- NOTE | 2024-07-20 07:41 | ANES.PREANE2 ---
Pre-Anesthetic Assessment Height/Weight: Height 5 ft 9 in Weight 248 lb Temp Pulse Resp BP Pulse Ox O2 Del Method 97.4 F L 71 16 124/71 97 Room Air 07/20/24 06:03 07/20/24 06:03 07/20/24 06:03 07/20/24 06:03 07/20/24 06:03 07/20/24 06:03 Preop Diagnosis: Carpal tunnel syndrome Operation Date: 07/20/24 07:00 Proposed Procedures p Carpal Tunnel Release(Right) - Carla Turner MD Last intake: Intake Last Liquid Date 07/19/24 Last Liquid Time 19:00 Last Solid Date 07/19/24 Last Solid Time 19:00 Social No alcohol and No tobacco Exam alert, oriented x 3, clear to auscultation bilaterally and regular rate & rhythm Airway Submandibular: within normal limits Cervical ROM: within normal limits Mallampati: Class III Dentition: other (Few missing teeth) Anesthetic Plan ASA status: 2 Anesthesia: General Other: No prior issues with anesthesia NPO since midnight 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, wears CPAP Hypertension controlled on meds Prior echo 2021 showing EF 55 to 60% Labs 06/30 reviewed and assessable for surgery METs greater than 4 Plan for general anesthesia with LMA Medications/Allergies Home Medications Medication Instructions Recorded Confirmed Last Taken Type lisinopril 20 mg tablet 20 mg PO DAILY 04/24/20 07/20/24 07/19/24 History lovastatin 40 mg tablet 40 mg PO DAILY 04/24/20 07/20/24 07/19/24 History cetirizine 10 mg capsule (All Day 10 mg PO DAILY PRN Allergic 09/25/21 07/20/24 07/19/24 History Allergy (cetirizine)) Reaction ketoconazole 2 % shampoo 1 applic topical .2-3 times weeky 07/30/22 07/20/24 Unknown Rx #120 mL finasteride 5 mg tablet 5 mg PO QDAY #90 tabs 12/27/22 07/20/24 07/19/24 Rx Allergies Allergy/AdvReac Type Severity Reaction Status Date / Time tree and shrub pollen Allergy Mild ALGY-Sneezi Verified 07/19/24 08:54 ng weed pollen Allergy Mild ALGY-Sneezi Verified 07/19/24 08:54 ng Current Medications Generic Name Dose Route Start Last Admin Trade Name Nakia PRN Reason Stop Dose Admin Sodium Chloride 1,000 mls @ 30 mls/hr 07/20/24 06:00 07/20/24 06:20 Sodium Chloride 0.9% IV 07/21/24 05:59 30 mls/hr .Q24H KADE Administration PFSH Anesthesia Medical History (Updated 07/02/24 @ 17:51 by CRISTAL Holland) Carpal tunnel syndrome, right Rupture of right proximal biceps tendon 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 Father , Age 54 No problems noted. Other CAD (coronary artery disease) Social History Smoking and tobacco/nicotine status: former use of tobacco/nicotine Quit status (tobacco/nicotine): has quit using Year quit tobacco: 1977 Former quit date comment: 20 years approx Alcohol intake: never Substance/Drug Use: never Adopted: No Caregiver/support person: No Lives independently: No Household members: spouse Marital status: Current occupational status: retired Data Anesthesia Cardiac Studies: Echocardiogram 12/31/21 Sestamibi Stress Test (Cardiology) 11/16/21
[2024-07-20] MEDS: ceFAZolin 2,000 mg SDV 2000 MG IVP (08:09)
[2024-07-20] MEDS: BUPivacaine 0.5% INJ 30 mL INJECTION (08:27)
--- NOTE | 2024-07-20 09:10 | P.OP_ITS ---
Operative Report Date of procedure: July 20, 2024 Pre-op diagnosis: Right carpal tunnel syndrome Post-op diagnosis: Right carpal tunnel syndrome Post-op findings: Severe compression across carpal canal with hourglass deformity and purpleish discoloration. Significant fibrotic change as well. Procedure done: Right Carpal Syndrome Implants: None Specimens removed/disposition: None Surgeon: Carla Turner MD Dip Unit Operator: None Anesthesia: General (Per LMA, ASA 2) Estimated blood loss (mL): 5 Tourniquet time (min): 19 (At 250 mmHg) IV fluids (mL): 1,500 Urine output (mL): 0 Complications: None Findings: Severe compression across carpal canal with purplish discoloration of the nerve and fibrotic change within the canal. Condition: stable Disposition: PACU (Then return to same-day surgery for discharge to home) Brief History: This 74-year-old gentleman presented with complaints of numbness in his right hand. The patient noted no specific cause, but he has had this numbness and weakness over the past 8 to 10 months. Nerve conduction studies were performed which demonstrated severe right carpal tunnel with profound motor and sensory loss. There was also issue with the right ulnar nerve through the ulnar groove, but the patient exhibited no symptoms of ulnar neuropathy. Patient was seen in the clinic. Surgical procedure was discussed. Consents were signed. In the preop holding area, discussion was further undertaken with the patient and questions were answered. Procedure: The patient was brought to the operating theater. Patient was administered a general anesthesia per LMA, ASA 2. The tourniquet was elevated to 250 mmHg for a total tourniquet time of 19 minutes. The patient was also given Ancef 2 g preoperatively. The arm was then prepped and draped with DuraPrep in usual fashion with the arm draped free. A surgical pause was performed. At the time, the surgical pause, we confirmed the site and side of surgery. We also confirmed the patient's identity, appropriate and timely administration of preoperative antibiotics and preoperative surgical markings. An incision was then made along the thenar crease. The incision crossed the wrist joint in a curvilinear fashion. Dissection continued through skin and soft tissues using a scalpel. The palmaris longus was identified along with the transverse carpal ligament. Each of these was released carefully to avoid injury to the median nerve. We were able to dissect gently into the carpal canal which was noted to be quite tight with significant compression across the median nerve. The nerve was visualized and was an hourglass shape. The canal was subsequently palpated to assure there was no bony encroachment upon the canal. There was quite thickened fibrous tissue within the canal, and this was opened longitudinally as well. The canal was then palpated distally and proximally to assure that my small finger was passed easily without impingement. Finding this to be so, attention was directed to closure. The wound was irrigated with ropivacaine plain. It was then closed with 3-0 nylon in an interrupted mattress fashion. Sterile dressing was then placed consisting of Dermabond, OpSite, fluffed fluffs, sterile soft roll, and an Edil wrap. The tourniquet was released after 19 minutes. There were no complications. There were no specimens. The procedure was well tolerated. Plan is the patient will be discharged home. Related Problem List Diagnoses (1) Carpal tunnel syndrome, right:
--- NOTE | 2024-07-20 10:00 | ANE.PACU2 ---
Inpatient post-anesthesia follow up: Airway intact: Yes Vital signs: Temperature 97 F Pulse Rate 58 Respiratory Rate 16 Blood Pressure 118/61 Pulse Oximetry 94 Oxygen Delivery Me thod Room Air Oxygen Flow Rate 8 Fraction of Inspir ed Oxygen Hydration adequate: Yes Nausea and vomiting: No Pain level: 1 Mental status: Baseline
== END 2024-07-20 10:00 | disposition home or self-care (01) ==
PROVIDERS: PCP Nurse Practitioner; Visit Provider Specialist
PROC: (CPT 64721; principal; 2024-07-20 07:40)
DX: G56.01 Carpal tunnel syndrome, right upper limb (principal); G47.33 Obstructive sleep apnea (adult) (pediatric); I10 Essential (primary) hypertension; N40.1 Benign prostatic hyperplasia with lower urinary tract symptoms; N13.8 Other obstructive and reflux uropathy; Z87.891 Personal history of nicotine dependence
CPT/HCPCS: 64721; J0131; J0690; J3010; J3490; J7030

== ENCOUNTER → 2024-07-27 14:16 | Outpatient (BNVA) | payer OTHER, SELFPAY | PROVIDERS: PCP Nurse Practitioner; Visit Provider Dermatology | DX: C84.A1 Cutaneous T-cell lymphoma, unspecified lymph nodes of head, face, and neck (principal); L82.1 Other seborrheic keratosis; D18.01 Hemangioma of skin and subcutaneous tissue; L81.4 Other melanin hyperpigmentation; L57.8 Other skin changes due to chronic exposure to nonionizing radiation; L82.0 Inflamed seborrheic keratosis; Z85.828 Personal history of other malignant neoplasm of skin | CPT/HCPCS: 17110; 99214 ==

== ENCOUNTER → 2024-08-02 13:04 | Outpatient (BNVA) | payer OTHER, SELFPAY | PROVIDERS: PCP Nurse Practitioner; Visit Provider Nurse Practitioner | DX: Z98.890 Other specified postprocedural states (principal) | CPT/HCPCS: 99024 ==

== ENCOUNTER → 2024-08-30 07:39 | Outpatient (BNVA) | payer OTHER, SELFPAY | PROVIDERS: PCP Nurse Practitioner; Visit Provider Nurse Practitioner | DX: Z98.890 Other specified postprocedural states (principal) | CPT/HCPCS: 99024 ==

== ENCOUNTER → 2024-09-29 07:43 | Outpatient (BNVA) | payer OTHER, SELFPAY | PROVIDERS: PCP Nurse Practitioner; Visit Provider Nurse Practitioner | DX: Z98.890 Other specified postprocedural states (principal); G56.01 Carpal tunnel syndrome, right upper limb | CPT/HCPCS: 99213 ==

== ENCOUNTER → 2024-12-09 15:08 | Outpatient (BNVA) | payer OTHER, SELFPAY | PROVIDERS: PCP Nurse Practitioner; Visit Provider Dermatology | DX: C84.A1 Cutaneous T-cell lymphoma, unspecified lymph nodes of head, face, and neck (principal); L82.1 Other seborrheic keratosis; D18.01 Hemangioma of skin and subcutaneous tissue; L72.0 Epidermal cyst; L73.8 Other specified follicular disorders; Z08 Encounter for follow-up examination after completed treatment for malignant neoplasm; Z85.828 Personal history of other malignant neoplasm of skin; D48.5 Neoplasm of uncertain behavior of skin; L57.0 Actinic keratosis | CPT/HCPCS: 11102; 17000; 99213 ==

== ENCOUNTER → 2025-02-15 13:16 | Outpatient (BNVA) | payer OTHER, SELFPAY | PROVIDERS: PCP Nurse Practitioner; Visit Provider Dermatology | DX: C84.A1 Cutaneous T-cell lymphoma, unspecified lymph nodes of head, face, and neck (principal); L82.1 Other seborrheic keratosis; D22.9 Melanocytic nevi, unspecified; D22.39 Melanocytic nevi of other parts of face; Z08 Encounter for follow-up examination after completed treatment for malignant neoplasm; Z85.828 Personal history of other malignant neoplasm of skin; L82.0 Inflamed seborrheic keratosis; L29.89 Other pruritus; L53.8 Other specified erythematous conditions | CPT/HCPCS: 17110; 99213 ==

== ENCOUNTER → 2025-08-12 07:52 | Outpatient (BNVA) | payer OTHER, SELFPAY | PROVIDERS: PCP Nurse Practitioner; Visit Provider Dermatology | DX: C84.A1 Cutaneous T-cell lymphoma, unspecified lymph nodes of head, face, and neck (principal); L82.1 Other seborrheic keratosis; D18.01 Hemangioma of skin and subcutaneous tissue; Z08 Encounter for follow-up examination after completed treatment for malignant neoplasm; Z85.828 Personal history of other malignant neoplasm of skin; L82.0 Inflamed seborrheic keratosis; L29.89 Other pruritus; R20.8 Other disturbances of skin sensation; L53.8 Other specified erythematous conditions; D48.5 Neoplasm of uncertain behavior of skin; L30.9 Dermatitis, unspecified; L57.0 Actinic keratosis | CPT/HCPCS: 11102; 17000; 17110; 99213 ==